=== PATIENT | male | born 1990 | race Caucasian/White ===

== ENCOUNTER 2019-09-27 20:09 | Emergency (ER) | payer BC ==
--- NOTE | 2019-09-27 21:33 | ER Document Report ---
ED Medical Screen (RME) - General Chief Complaint: Flank Pain Stated Complaint: RIGHT FLANK PAIN Time Seen by Provider: 09/27/19 21:29 Mode of Arrival: Ambulatory Information source: Patient Notes: 29-year-old male presented to ED for right upper abdominal pain. He states it became much worse after he ate tonight. He states he has had the pain before. He states he thought it was appendix before. But there is no pain in the lower right quadrant and it is all in the upper right quadrant. He states he did vomit x1 tonight. He states his pain was 5 out of 5 earlier but now it is 3 out of 5. We will get blood urine and ultrasound and he will be seen by another provider. He does have definite tenderness to the right upper quadrant. I have greeted and performed a rapid initial assessment of this patient. A comprehensive ED assessment and evaluation of the patient, analysis of test results and completion of medical decision making process will be conducted by an additional ED providers.
--- NOTE | 2019-09-27 22:44 | RADIOLOGY REPORT (SQ) ---
EXAM DESCRIPTION: US ABDOMEN DOPPLER LIMITED COMPLETED DATE/TME: 09/27/2019 21:34 CLINICAL HISTORY: 29 years, Male, Right upper quadrant abdominal pain COMPARISON: None. TECHNIQUE: Axial 2-D grayscale images of the abdomen were obtained. Doppler was utilized. LIMITATIONS: None. FINDINGS: Visualized portions of the pancreas appear normal in echogenicity. Visualized portions of the abdominal aorta and IVC appear normal. Liver contains 2 hyperechoic lesions, one of which is located within the periphery of the left hepatic lobe measuring 2.0 x 1.9 x 2.4 cm in size. The second lesion is located within the right hepatic lobe measuring 2.4 x 1.5 x 2.0 cm in size. Antegrade flow is documented within the main portal vein. Portal vein diameter is 1.2 cm. Liver length is 16.6 cm. Common bile duct diameter measures 4 mm. No gallstones. Gallbladder wall thickness measures 2 mm. Sonographic Eugene sign was negative. Right kidney measures 11.2 x 3.6 x 4.6 cm in size. No hydronephrosis. IMPRESSION: No acute sonographic abnormality. Indeterminate hyperechoic lesions located within the liver, as above. Hemangiomas are a possibility. Recommend confirmation with multiphasic CT or MR of the abdomen. copyright 2010 [employer]- All Rights Reserved
[2019-09-27 23:43] LABS: HEMATOCRIT 46.4 % (37.9-51.0); MEAN CORPUSCULAR HEMOGLOBIN 29.9 pg (27.0-33.4); MEAN CORPUSCULAR HGB CONC 34.6 g/dL (32.0-36.0); MEAN CORPUSCULAR VOLUME 86 fl (80-97); PLATELET COUNT 202 10^3/uL (150-450); RED BLOOD COUNT 5.37 10^6/uL (4.35-5.55); RED CELL DISTRIBUTION WIDTH 12.9 % (11.5-14.0); WHITE BLOOD COUNT 12.3 10^3/uL (4.0-10.5)
[2019-09-27 23:52] LABS: APPEARANCE,URINE CLEAR; BILIRUBIN,URINE NEGATIVE (NEGATIVE); COLOR,URINE YELLOW; GLUCOSE, URINE NEGATIVE (NEGATIVE); KETONES,URINE NEGATIVE (NEGATIVE); LEUKOCYTE ESTERASE,URINE NEGATIVE (NEGATIVE); NITRITE,URINE NEGATIVE (NEGATIVE); PROTEIN,URINE 30 mg/dL (NEGATIVE); URINE SPECIFIC GRAVITY 1.031; UROBILINOGEN,URINE NEGATIVE mg/dL (<2.0)
[2019-09-27 23:58] LABS: ALBUMIN 4.1 g/dL (3.5-5.0); ALKALINE PHOSPHATASE 80 U/L (38-126); ANION GAP 7 (5-19); ASPARTATE AMINO TRANSFERASE 22 U/L (17-59); BILIRUBIN,TOTAL 2.1 mg/dL (0.2-1.3); BLOOD UREA NITROGEN 17 mg/dL (7-20); CALCIUM 9.5 mg/dL (8.4-10.2); CARBON DIOXIDE 25 mmol/L (22-30); CHLORIDE 103 mmol/L (98-107); GLUCOSE 126 mg/dL (75-110); POTASSIUM 4.1 mmol/L (3.6-5.0); TOTAL PROTEIN 7.2 g/dL (6.3-8.2)
[2019-09-28 00:17] LABS: ABSOLUTE LYMPHOCYTES# (MANUAL) 1.5 10^3/uL (0.5-4.7); ABSOLUTE MONOCYTES # (MANUAL) 0.6 10^3/uL (0.1-1.4); BASOPHILS % (MANUAL) 0 % (0-2); EOSINOPHILS % (MANUAL) 2 % (0-6); LYMPHOCYTES % (MANUAL) 9 % (13-45); MONOCYTES % (MANUAL) 5 % (3-13); PLATELET COMMENT ADEQUATE; SEGMENTED NEUTROPHILS % (MAN) 81 % (42-78); TOTAL CELLS COUNTED 100
[2019-09-28 00:19] LABS: BURR CELLS SLIGHT; OVALOCYTES SLIGHT; TOXIC VACUOLATION PRESENT
--- NOTE | 2019-09-28 05:48 | RADIOLOGY REPORT (SQ) ---
CLINICAL HISTORY: RUQ pain leukocytosis COMPARISON: None. TECHNIQUE: CT ABDOMEN PELVIS WITH IV CONTRAST on 09/28/2019 4:22 AM CDT This exam was performed according to our departmental dose-optimization program, which includes automated exposure control, adjustment of the mA and/or kV according to patient size and/or use of iterative reconstruction technique. FINDINGS: Lower lungs are clear. Abdomen: There is a minimal low-density lesion in the left lobe of the liver measuring 1.8 cm. This is hypodense and is indeterminate. There is no biliary dilatation. Gallbladder is decompressed. Two similar lesions are present adjacent to the gallbladder fossa measuring up to 1.3 cm. The pancreas and spleen are normal in appearance. The adrenal glands and kidneys are unremarkable. Abdominal aorta is normal in course and caliber without aneurysm. There is no free air. There is no retroperitoneal adenopathy. Pelvis: There is no bowel obstruction. Urinary bladder is unremarkable. There is no free fluid. Appendix is normal. Skeleton: There are no acute osseous findings. No suspicious bony lesions. IMPRESSION: No acute inflammatory process. At least three lesions within the liver which are nonacute adequately characterize by this study. Recommend nonemergent MRI of the abdomen.
--- NOTE | 2019-09-28 06:26 | ER Document Report ---
ED General - General Chief Complaint: Abdominal Pain Stated Complaint: RIGHT FLANK PAIN Time Seen by Provider: 09/27/19 21:29 Primary Care Provider: HARPAL PALMA PA-C [Primary Care Provider] - Follow up as needed Mode of Arrival: Ambulatory - [facility] Notes: 29-year-old male with no significant past medical history presents with migratory abdominal pain is episodic over the past approximately 3 years. Patient says that he started having episodes where he would have sudden abdomi nal pain after eating that would last for few hours and then resolve occurring every few months approximately 3 years ago and that over the last several months the episodes have worsened so that they occur approximately monthly. Patient had [employer] before today's episode occurred. Patient vomited once, pain resolved after few hours without intervention. Pain was worst in right upper quadrant and is currently gone. Patient denies any prior medical evaluation, fever, diarrhea, constipation, melena, bright red blood per rectum, urinary symptoms, prior abdominal surgeries, unexplained weight loss, back pain, drug use, chest pain - Related Data Allergies/Adverse Reactions: No Known Allergies Allergy (Unverified 09/27/19 21:34) Past Medical History - General Information source: Patient - Social History Smoking Status: Former Smoker Chew tobacco use (# tins/day): Yes Frequency of alcohol use: None Drug Abuse: None Family History: Reviewed & Not Pertinent Pulmonary Medical History: Reports: Hx Asthma - childhood Review of Systems - Review of Systems Notes: REVIEW OF SYSTEMS: CONSTITUTIONAL : Denies fever, chills, or sweats. EENT: Denies recent cold/sinus symptoms, denies throat pain CARDIOVASCULAR: Denies chest pain, PAUL RESPIRATORY: Denies cough, denies shortness of breath. GASTROINTESTINAL: + abdominal pain, +nausea/vomiting. GENITOURINARY: Denies difficulty urinating, painful urination. MUSCULOSKELETAL: Denies neck pain, back pain. SKIN: Denies rash or skin lesions. HEMATOLOGIC : Denies easy bruising or bleeding. LYMPHATIC: Denies swollen, enlarged glands. NEUROLOGICAL: Denies headache, denies change in gait. PSYCHIATRIC: Denies anxiety or stress or depression. Physical Exam - Vital signs Vitals: Temp Pulse Resp BP Pulse Ox 98.4 F 53 L 16 132/85 H 97 09/27/19 21:28 09/27/19 21:28 09/27/19 21:28 09/27/19 21:28 09/27/19 21:28 - Notes Notes: PHYSICAL EXAMINATION: GENERAL: Well-appearing, well-nourished and in no acute distress. HEAD: Atraumatic, normocephalic. EYES: Pupils equal round and appropriate constriction, sclera anicteric, conjunctiva are normal. ENT: nares patent, moist mucous membranes. NECK: Normal range of motion, supple without lymphadenopathy LUNGS: Breath sounds clear to auscultation bilaterally and equal. No wheezes rales or rhonchi. HEART: Regular rate and rhythm without murmurs ABDOMEN: Soft, nontender, no guarding, no masses, no CVAT EXTREMITIES: Normal range of motion, no pitting or edema. No cyanosis. NEUROLOGICAL: Awake, alert, conversing appropriately, moves all extremities spontaneously. PSYCH: Normal mood, normal affect. SKIN: Warm, Dry, normal turgor, no rashes or lesions noted. Course - Re-evaluation Re-evalutation: 09/28/19 06:25 Episodic abdominal pain that is been chronic over 3 years, pain resolved in ED, patient very well-appearing, normal vitals, normal abdominal exam. Patient with no risk factors for atypical ACS, possibly biliary LA allergy but normal right upper quadrant ultrasound. Ordered CT scan because of hyperechoic lesions on ultrasound which showed multiple lesions of unknown etiology which patient will need to follow-up closely with gastroenterology and primary doctor. Patient had leukocytosis on arrival but patient had significant pain at that time and likely acute stress response, patient currently asymptomatic. Patient ready for discharge given extensive ED return precautions which she demonstrated un derstanding of. - Vital Signs Vital signs: Temp Pulse Resp BP Pulse Ox 97.6 F 58 L 16 131/75 H 96 09/28/19 01:33 09/28/19 01:33 09/28/19 01:33 09/28/19 01:33 09/28/19 01:33 - Laboratory Result Diagrams: 09/27/19 23:31 09/27/19 23:31 Laboratory results interpreted by me: 09/27/19 09/27/19 09/27/19 23:31 23:31 23:31 WBC 12.3 H Seg Neuts % (Manual) 81 H Lymphocytes % (Manual) 9 L Abs Neuts (Manual) 10.0 H Sodium 135.4 L Glucose 126 H Total Bilirubin 2.1 H Urine Protein 30 H Discharge - Discharge Clinical Impression: Liver lesion Abdominal pain Qualifiers: Abdominal location: unspecified location Qualified Code(s): R10.9 - Unspecified abdominal pain Leukocytosis Qualifiers: Leukocytosis type: unspecified Qualified Code(s): D72.829 - Elevated white blood cell count, unspecified Disposition: HOME, SELF-CARE Additional Instructions: Abdominal Pain There are many causes of abdominal pain. Pain can mean a serious problem requiring surgery (such as appendicitis). It can also be an innocent problem that goes away on its own (such as a viral infection). Often, time must pass to determine the cause of pain. The physician does not feel that hospitalization is necessary, at present. Things may change within the next 24 hours. Call the doctor or come back for re- examination if any problems occur, such as: (1) Pain that becomes more severe, steady, or becomes concentrated in one specific area. Also, pain that is more severe with movement or coughing. (2) Vomiting that persists or becomes more frequent. (3) Blood in the vomitus, urine, or bowel movements. Blood in the stool may have a tarry or black appearance. (4) Shaking chills or fever greater than 100 degrees F. (5) The abdomen becomes more distended or swollen. (6) Bowel movements cease. (7) Failure to improve as expected. 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 He also had mildly elevated blood glucose and bilirubin. See numerical control drill press operator and primary doctor within 1 week. If you have any worsening symptoms, inability to keep down liquids by mouth, dizziness, fainting, chest pain, worsening pain, or any other worsening or alarming symptoms return to the emergency department immediately. Referrals: HARPAL PALMA PA-C [Primary Care Provider] - Follow up as needed CHANTE BETTS MD [ACTIVE STAFF] - Follow up as needed
[2019-09-28 06:54] VITALS: BP 132/78
== END 2019-09-28 06:54 | disposition home or self-care (01) ==
LOC: ER 20:09
DX: R10.11 Right upper quadrant pain (principal); K76.9 Liver disease, unspecified; D72.829 Elevated white blood cell count, unspecified; R11.2 Nausea with vomiting, unspecified; Z87.891 Personal history of nicotine dependence
CPT/HCPCS: 36415; 74177; 76705; 80053; 81001; 83690; 85025; 93976; 99285

== ENCOUNTER 2019-10-25 07:59 | Day surgery (SDC) | payer BC ==
[~2019-10-25 07:59] MED LIST: PROPOFOL INJ 200 MG/20 ML VIAL IV ONE
--- NOTE | 2019-10-25 10:18 | Operative Report ---
Operative Report DATE OF SURGERY: 10/25/19 Operative Report: The risk, benefits and alternatives of the procedure including the risk of bleeding, perforation requiring surgery have been explained to the patient in detail and informed consent has been obtained. Patient is placed in a left, lateral decubital position. Timeout was called. Propofol medication is administered. Rectal examination is done which did not reveal any masses, tears or fissures. An Olympus videoscope was introduced into the patient's rectum and advanced all the way to the cecum. Cecum was identified by the usual anatomical landmarks including the ileocecal valve as well as the appendiceal office. Photodocumentation is obtained per scope was then sequentially pulled back via the various segments of the colon including the ascending colon, hepatic flexure, transverse colon, splenic flexure, descending colon and finally into the rectosigmoid portions of the colon. Retroflexion maneuvers performed. PREOPERATIVE DIAGNOSIS: Right lower quadrant pain without Crohn's disease POSTOPERATIVE DIAGNOSIS: Random biopsies obtained in the terminal ileum rule out Crohn's disease OPERATION: Colonoscopy with biopsy SURGEON: CHANTE BETTS ANESTHESIA: LMAC TISSUE REMOVED OR ALTERED: As noted above. COMPLICATIONS: None. ESTIMATED BLOOD LOSS: None. INTRAOPERATIVE FINDINGS: As noted above. PROCEDURE: Patient tolerated procedure well. No immediate postprocedure complications are noted. Patient is discharged in good condition. Discharge date 10/25/2019. Discharge diet: Regular. Discharge activity: Regular. 2 to 3-week follow-up to discuss findings. Patient is instructed call the office or proceed to the emergency room should there be any further problems or questions. Wait on the pathology.
[2019-10-25 10:54] VITALS: BP 133/80
== END 2019-10-25 11:00 | disposition home or self-care (01) ==
LOC: END 07:59
PROVIDERS: ATTEND Internal Medicine Gastroenterology
DX: R10.31 Right lower quadrant pain (principal)
CPT/HCPCS: 45380; 88305 ×2; 00812; J2704; 812

== ENCOUNTER → 2019-12-27 | Outpatient (CLI) | payer BC ==
--- NOTE | 2019-12-27 12:20 | RADIOLOGY REPORT (SQ) ---
EXAM DESCRIPTION: NM HIDA SCAN IMAGES COMPLETED DATE/TIME: 12/27/2019 10:18 am REASON FOR STUDY: R10.11 RIGHT UPPER QUADRANT PAIN R10.11 RIGHT UPPER QUADRANT PAIN COMPARISON: None. RADIONUCLIDE AND DOSE: DOSAGE RADIONUCLIDE: 5 millicuries Tc99m Mebrofenin. DOSAGE MORPHINE: Not required. The route of agent administration: Intravenous TECHNIQUE: Serial imaging right upper quadrant up to 60 minutes following injection of radionuclide. Patient imaged AP and Right Lateral. LIMITATIONS: None. FINDINGS: LIVER: Normal visualization without areas of photopenia. INTRA-HEPATIC BILE DUCTS: Temporal visualization normal. No dilatation. COMMON BILE DUCT: Normal without dilatation or delayed visualization. GALLBLADDER: There appears to be slightly delayed visualization of the gallbladder. OTHER: No other significant finding. IMPRESSION: NORMAL STUDY WITHOUT CYSTIC OR COMMON DUCT OBSTRUCTION. TECHNICAL DOCUMENTATION: JOB ID: [id number] 2010 [employer]- All Rights Reserved Reading location - IP/workstation name: [email or web address]
--- NOTE | 2019-12-27 14:31 | RADIOLOGY REPORT (SQ) ---
EXAM DESCRIPTION: U/S ABDOMEN LIMITED W/O DOP IMAGES COMPLETED DATE/TIME: 12/27/2019 9:13 am REASON FOR STUDY: R10.11 RIGHT UPPER QUADRANT PAIN R10.11 RIGHT UPPER QUADRANT PAIN COMPARISON: 09/27/2019 TECHNIQUE: Dynamic and static grayscale images acquired of the abdomen and recorded on PACS. Karlao aixa selected color Doppler and spectral images recorded. LIMITATIONS: None. FINDINGS: PANCREAS: No masses. No pancreatic ductal dilatation. LIVER: There are some hyperechoic areas within the liver. The largest measures 21 mm. The next larg est measures 15 mm. LIVER VASCULATURE: Normal directional flow of the main portal vein and hepatic veins. GALLBLADDER: Gallstones. No wall thickening. ULTRASOUND-DETECTED JAMES'S SIGN: Negative. INTRAHEPATIC DUCTS AND COMMON DUCT: CBD and intrahepatic ducts normal caliber. No filling defects. AORTA: No aneurysm. RIGHT KIDNEY: Normal size, 9 cm. Normal echogenicity. No solid or suspicious masses. No hydronephros is. No calcifications. PERITONEAL AND RIGHT PLEURAL SPACE: No ascites or effusions. OTHER: No other significant findings. IMPRESSION: There are some hyperechoic areas in the liver. These likely represent hemangiomas. Can not exclude metastases. TECHNICAL DOCUMENTATION: JOB ID: [id number] 2010 [employer]- All Rights Reserved Reading location - IP/workstation name: [email or web address]
--- OUTSIDE RECORDS SUMMARY | 2019-12-28 15:05 | XMS REPORT ---
:1990 Author Organization [facility] Address [facility] [address] [place] [address] Care Team Providers Name Role Phone Betito Attending Clinician Unavailable Allergies, Adverse Reactions, Alerts This patient has no known allergies or adverse reactions. Medications This patient has no known medications. Problems This patient has no known problems. Procedures Procedure Date / Time Performed Performing Clinician Devi e OFFICE/OUTPATIENT VISIT [facility] 2017-12-28 14:15:00 Results Test Description Test Time Test Comments Text Results Atomic Results Result Comments SARS-CoV-2, ABRAHAM\S\ 2019-11-27 11:34:00 Test Item Value Reference Range Comments SARS-CoV-2, ABRAHAM (test code = 85683-9) Not Detected Not Detect ed COVID-19 Antigen\S\2019-10-23 15:24:00 Test Item Value Reference Range Comments COVID-19 Antigen (test code = SARSCOV2) negative CBC (INCLUDES DIFF/PLT)2017-12-28 16:33:00 Test Item Value Reference Range Comments HEMATOCRIT (test code = 06888122) 52.5 % 38.5-50.0 WHITE BLOOD CELL COUNT (test code = 8.3 Thousand/uL 3.8-10.8 41082605) PLATELET COUNT (test code = 64297083) 245 Thousand/uL 140-400 LYMPHOCYTES (test code = 00804375) 28.5 % MONOCYTES (test code = 15053314) 5.9 % HEMOGLOBIN (test code = 47861322) 17.4 g/dL 13.2-17.1 BASOPHILS (test code = 02301602) 1.0 % MPV (test code = 54708307) 12.7 fL 7.5-12.5 ABSOLUTE NEUTROPHILS (test code = 07410484) 5154 cells/uL 1500 -7800 MCH (test code = 14501467) 28.9 pg 27.0-33.0 EOSINOPHILS (test code = 15432640) 2.5 % MCV (test code = 97836128) 87.2 fL 80.0-100.0 RED BLOOD CELL COUNT (test code = 67359206) 6.02 Million/uL 4.20 -5.80 ABSOLUTE BASOPHILS (test code = 98347690) 83 cells/uL 0-200 NEUTROPHILS (test code = 00029997) 62.1 % ABSOLUTE EOSINOPHILS (test code = 01412068) 208 cells/uL 15-5 00 ABSOLUTE MONOCYTES (test code = 17238436) 490 cells/uL 200-95 0 RDW (test code = 95195045) 11.7 % 11.0-15.0 ABSOLUTE LYMPHOCYTES (test code = 60565020) 2366 cells/uL 850- 3900 MCHC (test code = 00936567) 33.1 g/dL 32.0-36.0 [id number] 16:33:001.511.51COMPREHENSIVE METABOLIC [id number] 16:33:00 Test Item Value Reference Range Comments PROTEIN, TOTAL (test code = 60605133) 7.3 g/dL 6.1-8.1 POTASSIUM (test code = 73248830) 4.4 mmol/L 3.5-5.3 SODIUM (test code = 33382608) 137 mmol/L 135-146 ALKALINE PHOSPHATASE (test code = 87 U/L 40-115 ) GLUCOSE (test code = 53493276) 94 mg/dL 65-99 BILIRUBIN, TOTAL (test code = 2.1 mg/dL 0.2-1.2 97696957) AST (test code = 00228505) 19 U/L 10-40 GLOBULIN (test code = 68701986) 2.8 g/dL (calc) 1.9-3.7 eGFR NON-AFR. YEMENI (test code = 118 mL/min/1.73m2 > OR = 60 81179386) CARBON DIOXIDE (test code = 24601082) 28 mmol/L 20-32 CREATININE (test code = 18039755) 0.85 mg/dL 0.60-1.35 UREA NITROGEN (BUN) (test code = 12 mg/dL 7-25 ) BUN/CREATININE RATIO (test code = NOT APPLICABLE (calc) 6-22 93857734) ALT (test code = 59588037) 13 U/L 9-46 CALCIUM (test code = 49844591) 9.7 mg/dL 8.6-10.3 CHLORIDE (test code = 98190389) 100 mmol/L 98-110 ALBUMIN (test code = 09334299) 4.5 g/dL 3.6-5.1 eGFR (test code = 136 mL/min/1.73m2 > OR = 60 75980077) ALBUMIN/GLOBULIN RATIO (test code = 1.6 (calc) 1.0-2.5 39706591) Assessments Condition Name Status Diagnosis Date Treating Clinici an Pain in right knee Active Pain in left knee Active Other chronic pain Active Tinnitus, bilateral Active Encounters Start End Encounter Admission Attending Care Care Encounter Date/Time Date/Time Type Type Clinicians Facility Department ID 2017-12-28 2017-12-28 Outpatient [facility] [place] [id number] 14:15:00 14:15:00 [facility] [id number] s [id number] and [id number] Social History This patient has no known social history. Vital Signs This patient has no known vital signs.
== END ==
LOC: RAD 08:27
PROVIDERS: ATTEND Internal Medicine Gastroenterology
DX: R10.11 Right upper quadrant pain (principal)
CPT/HCPCS: 76705; 78226; A9537; Q9969